=== PATIENT | male | born 1965 | race Caucasian/White ===

== ENCOUNTER 2024-02-23 08:48 | Outpatient (OUT) | payer OTHER, SELFPAY ==
--- NOTE | 2024-02-23 08:58 | ECG_ITS ---
[facility] Test Date: 2024-02-23 Pat Name: ROBER PROCTOR Department: Room: - Gender: Male Wardsperson: : 1965 Requested By: [id number] Order Number: [id number] Reading MD: JENNIFER KRAMER Measurements Intervals [place] Rate: 59 P: 12 ND: 186 QRS: 4 QRSD: 92 T: 11 QT: 387 QTc: 386 Interpretive Statements SINUS BRADYCARDIA No previous ECG available for comparison Electronically Signed On 02-23-2024 14:34:54 EDT by JENNIFER KRAMER
[2024-02-23 09:58] LABS: Anion Gap 10.8; BUN Creatinine Ratio 13.2; Calcium 8.8 mg/dL (8.5-10.1); Chloride 105 mmol/L (98-107); Estimated GFR (African America >60 (>=60); Estimated GFR (Non-African Ame >60 (>=60); Glucose 115 mg/dL (74-106); Potassium 3.8 mmol/L (3.5-5.1); Sodium 141 mmol/L (136-145)
== END 2024-02-23 08:49 | disposition home or self-care (01) ==
PROVIDERS: PCP Family Medicine; Visit Provider Urology
DX: Z01.812 Encounter for preprocedural laboratory examination (principal); Z01.810 Encounter for preprocedural cardiovascular examination; N20.0 Calculus of kidney
CPT/HCPCS: 80048; 93005

== ENCOUNTER 2024-03-07 09:13 | Day surgery (SDC) | payer OTHER, SELFPAY ==
[2024-02-23 09:34] VITALS: BP 142/86; PULSE 72; TEMP 36.4; O2SAT 97; BMI 35.7
[2024-03-07] VITALS (11 sets, daily range): BP systolic 123–141; BP diastolic 75–91; PULSE 52–75; TEMP 36.2–36.6; O2SAT 94–97; BMI 35.2
[2024-03-07] MEDS: LACTATED RINGER'S SOLUTION 1,000 ML 50 ML IV ×2 (09:47→11:56)
[2024-03-07] MEDS: CEFAZOLIN SODIUM 2 GM/50 ML D5W PREMIX IV (11:03)
--- NOTE | 2024-03-07 11:12 | XR_ITS ---
[address] [address] Patient Name: ROBER PROCTOR MRN: [id number] date: 1965 Sex: M Assigned Patient Location: [facility] Current Patient Location: Accession/Order Number: [id number] Exam Date: 03/07/2024 11:15 Report Date: 03/07/2024 14:25 At the request of: USHA DEWEY Procedure: XR urethrogram retrograde EXAM: XR urethrogram retrograde HISTORY: Left stent placement, left retrograde COMPARISON: None. TECHNIQUE: 15.2 mg. 2 images FINDINGS: 2 images demonstrate retrograde injection of iodinated contrast into a left renal collecting system with severe hydronephrosis. Image #2 by time stamp, demonstrates placement of a ureteral stent and wire XR/XR urethrogram retrograde IMPRESSION: Placement of a left ureteral stent Electronically authenticated by: CARROLL PETE Date: 03/07/2024 14:25
[2024-03-07] MEDS: IOHEXOL 240 MG/ML - 10 ML VIAL INJ (11:45)
--- NOTE | 2024-03-07 13:09 | P.URON_ITS ---
Urology Surgery Operative Note Operative Note Procedure Date: 03/07/24 Time Out Performed: yes Pre-op Diagnosis: 1. Left kidney stones 2. Left UPJ obstruction Post-op Diagnosis: same as pre-op Procedures performed: Cystoscopy, left retrograde pyelogram, ureteroscopy with laser lithotripsy/stone extraction, stent placement Anesthesia: General-ET Primary Surgeon: Jessica Bermudez Complications: none Estimated blood loss (mL): 0 Findings: -Moderate bilobar prostatic hypertrophy with moderately elevated bladder neck. 1+ trabeculations. -Narrow left UO and narrow distal ureter 3-4 cm proximal to UO, tortuous UPJ with narrowing but able to accommodate ureteroscope. -L RPG- short 1 cm narrowing distal ureter 3-4 cm proximal to UO, tortuous UPJ high insertion into severely dilated renal pelvis, no extravasation or other filling defects. -Too numerous to count small 1-2 mm smooth round yellow stones with few larger stones ~ 4-5 mm. One 5 mm dark renal stone. Combination basket extraction, dusting and fragmentation. Unable to render stone free given extensive small stone burden, visibility limited from dusting and narrow sheath used. Specimens: left kidney stones Drains: 6Fr x 26 cm JJ left ureteral stent Incision: none Indications for Procedures: 58 year old male diagnosed with multiple left renal stones total 1.2 x 0.6 cm with severe distention of renal pelvis concerning for UPJ obstruction. After discussion of risks/benefits of management options, he elected to proceed with cystoscopy, left retrograde pyelogram, ureteroscopy with laser lithotripsy/stone extraction, ureteral stent placement, possible dilation under general anesthesia. He declined workup for pyeloplasty at this time. Risks were discussed including but not limited to bleeding, pain, infection, damage to surrounding structures, inability to treat the stone/place a stent, and need for additional procedures. The patient understands the stent is not permanent and needs to be removed or exchanged within 3 months to prevent encrustation, infection, invasive procedures and/or permanent renal damage. Detailed description of Procedure: After informed consent was obtained, the patient was brought to the operating room and transferred onto the operating table in supine position. Sequential compression devices were placed on bilateral lower extremities. The patient received the appropriate dose of preoperative IV antibiotics and general anesthesia was induced. They were positioned in modified dorsolithotomy with the appropriate pressure points padded, prepped, and draped in the usual sterile fashion for this procedure. An operative safety timeout was performed confirming the patient's identity, laterality and procedure, and all present agreed to proceed. I began by inserting a 22 Malagasy rigid cystoscope with 30 degree lens into the patient's urethra and bladder without difficulty. There were no bladder tumors, lesions, stones or foreign bodies. Bilateral ureteral orifices were orthotopic and patent, left UO more narrow. I turned my attention to the left ureteral orifice and a 6- Malagasy open-ended catheter was inserted over a wire to gain access into the ureteral orifice. Dilute contrast was injected for retrograde pyelogram with findings as above. A Sensor wire was inserted into the ureter up to the renal pelvis confirmed on fluoroscopy. A 10/12 Malagasy by 36 cm ureteral access sheath was inserted over the wire in a sequential fashion to gain access to the renal pelvis, very tight in mid-distal ureter. Next a flexible ureteroscope was inserted through the sheath and advanced to the renal pelvis under fluoroscopic guidance, findings as above. A 200 ?m holmium la ser fiber was used to fragment and dust the stones into tiny fragments. A 1.8 tipless nitinol basket as well as 3.0Fr Mariama basket was used to remove some stones, however due to extensive amount of small stones this was not effective. Due to limited access and visibility, contrast was injected to confirm no extravasation and stent was placed with plans to return after passive dilation and dust has flushed out. The wire was reinserted and a pull down ureteroscopy was performed confirming no stones remained in the ureter. The wire was backloaded through the cystoscope and 6Fr x 26cm JJ ureteral stent was advanced over the wire, noting adequate curl in the renal pelvis and bladder on fluoroscopic and direct visualization. The bladder was drained and inspected one final time to ensure adequate position of stent and no undue trauma to the bladder was done. The stones were sent for pathology and the cystoscope was removed. The patient tolerated the procedure well without complication. The patient was awakened from anesthesia and sent to PACU in stable condition. Plan: Discharge home with stent pain medications. Follow up in the upcoming weeks for second stage left ureteroscopy, laser lithotripsy, stent exchange. Other Provider present: No Post Operative care instructions: See discharge instructions Attending Doc Confirm Attending Attestation: Yes
--- NOTE | 2024-03-07 13:49 | PC.NURSE ---
1345: pt ambulates to bathroom with minimal assistance. pt voids without difficulty,blood tinged urine,no clots present.
== END 2024-03-07 14:13 | disposition home or self-care (01) ==
PROVIDERS: PCP Family Medicine; Visit Provider Urology
PROC: (CPT 918; principal; 2024-03-07 10:15)
DX: N20.0 Calculus of kidney (principal); N32.89 Other specified disorders of bladder; N40.0 Benign prostatic hyperplasia without lower urinary tract symptoms; N13.5 Crossing vessel and stricture of ureter without hydronephrosis; R31.21 Asymptomatic microscopic hematuria; I10 Essential (primary) hypertension; K21.9 Gastro-esophageal reflux disease without esophagitis
CPT/HCPCS: 52356; 36415; 74420; 82365; 99999; J0330; J0690; J1100; J1885; J2250; J2405; J2704; J2710; J3010; Q9966